=== PATIENT | female | born 1990 | race Caucasian/White ===

== ENCOUNTER → 2023-04-08 | Outpatient (CLI) | payer MEDICAID ==
[2023-04-08 13:05] LABS: BASOPHILS % (AUTO) 0 % (0-10); EOSINOPHILS # (AUTO) 0.1 10^3/uL (0.0-0.3); EOSINOPHILS % (AUTO) 1 % (0-10); HEMATOCRIT 41 % (35-52); HEMOGLOBIN 13.8 g/dL (11.5-16.0); LYMPHOCYTES # (AUTO) 3.7 10^3/uL (1.0-4.0); LYMPHOCYTES % (AUTO) 35 % (12-44); MEAN CORPUSCULAR HEMOGLOBIN 29 pg (25-34); MEAN CORPUSCULAR HGB CONC 33 g/dL (32-36); MEAN CORPUSCULAR VOLUME 88 fL (80-99); MEAN PLATELET VOLUME 11.4 fL (9.0-12.2); MONOCYTES % (AUTO) 9 % (0-12); NEUTROPHILS # (AUTO) 5.6 10^3/uL (1.8-7.8); NEUTROPHILS % (AUTO) 54 % (42-75); PLATELET COUNT 272 10^3/uL (130-400); WHITE BLOOD COUNT 10.5 10^3/uL (4.3-11.0)
[2023-04-08 13:11] LABS: ALBUMIN 4.1 GM/DL (3.2-4.5)
[2023-04-08 13:12] LABS: POTASSIUM 4.3 MMOL/L (3.6-5.0)
[2023-04-08 13:13] LABS: CALCIUM 9.4 MG/DL (8.5-10.1)
[2023-04-08 13:14] LABS: TOTAL PROTEIN 7.3 GM/DL (6.4-8.2)
[2023-04-08 13:16] LABS: BILIRUBIN,TOTAL 0.4 MG/DL (0.1-1.0)
[2023-04-08 13:17] LABS: CREATININE SERUM 0.81 MG/DL (0.60-1.30)
== END ==
LOC: LAB 12:44
PROVIDERS: ATTEND Nurse Practitioner Family
DX: R60.0 Localized edema (principal)
CPT/HCPCS: 36415; 80053; 83880; 85025

== ENCOUNTER 2023-06-21 19:46 | Emergency (ER) | payer MEDICAID ==
[~2023-06-21] VITALS: Ht 170.2 cm; Wt 147.0 kg
[2023-06-21] MEDS ORDERED: NS IV 1000 ML 1,000 ML IV STA (19:56)
[2023-06-21] MEDS ORDERED: ONDANSETRON 4 MG/2 ML (SDV) Z0FRAN IVP ONE (20:00)
--- NOTE | 2023-06-21 20:00 | ED General ---
General Stated Complaint: HEADACHE/NAUSEA Source of Information: Patient Exam Limitations: No Limitations History of Present Illness Date Seen by Provider: Jun 21, 2023 Time Seen by Provider: 19:58 Initial Comments Patient is a 32-year-old female who presents ED for heat exhaustion. Patient works in a [employer]. She states she was working in side today. Started feeling overheated flush. This started around 11 AM. She ended up sitting down and tried to cool off. Started having abdominal cramping, right flank cramping, upper and lower extremity cramping. Patient attempted to drink water and Theo rade but this has not helped. She reports generalized head pain with nausea. Denies vomiting or diarrhea. Subjective fever. No evidence of confusion, seizures. Not concern for . She urinated 4 times today and states that her urine appears dark. Denies chest pain, cough, shortness of breath, visual changes Allergies and Home Medications Allergies Coded Allergies: doxycycline (Verified Allergy, Unknown, 06/21/23) Patient Home Medication List Home Medication List Reviewed: Yes Review of Systems Review of Systems Constitutional: No diaphoresis; dizziness; No fever; malaise, weakness EENTM: No hearing loss, No ear pain, No blurred vision Respiratory: No cough Cardiovascular: No chest pain Gastrointestinal: No abdominal pain, No diarrhea; nausea; No vomiting Genitourinary: decreased output; No discharge Musculoskeletal: No back pain, No joint pain Skin: No change in color, No change in hair/nails All Other Systems Reviewed Negative Unless Noted: Yes Physical Exam Vital Signs Vital Signs - First Documented 06/21/23 19:52 Temp 37.8 Pulse 108 Resp 20 B/P (MAP) 144/93 (110) Pulse Ox 99 O2 Delivery Room Air Capillary Refill : Height, Weight, BMI Height: '" Weight: lbs. oz. kg; BMI Method: General Appearance: No Apparent Distress, WD/WN Eyes: Bilateral Eye Normal Inspection, Bilateral Eye PERRL, Bilateral Eye EOMI HEENT: PERRL/EOMI, TMs Normal, Normal ENT Inspection, Pharynx Normal Neck: Full Range of Motion, Normal Inspection, Non Tender, Supple Respiratory: Chest Non Tender, Lungs Clear, Normal Breath Sounds, No Accessory Muscle Use, No Respiratory Distress Cardiovascular: Regular Rate, Rhythm, No Edema, No Gallop, No JVD Gastrointestinal: Normal Bowel Sounds, No Organomegaly, No Pulsatile Mass, Non Tender Extremity: Normal Capillary Refill, Normal Inspection, Normal Range of Motion, Non Tender Neurologic/Psychiatric: Alert, Oriented x3, No Motor/Sensory Deficits, Normal 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, 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 Norm as Tested Skin: Normal Color, Warm/Dry Progress/Results/Core Measures Suspected Sepsis SIRS Temperature: Pulse: Respiratory Rate: Laboratory Tests 06/21/23 20:03: White Blood Count 8.1 Blood Pressure / Mean: Laboratory Tests 06/21/23 20:03: Creatinine 0.85, Platelet Count 246, Total Bilirubin 0.6 Results/Orders Lab Results Laboratory Tests Test 06/21/23 20:03 06/21/23 20:05 Range/Units White Blood Count 8.1 4.3-11.0 10^3/uL Red Blood Count 4.54 3.80-5.11 10^6/uL Hemoglobin 13.2 11.5-16.0 g/dL Hematocrit 39 35-52 % Mean Corpuscular Volume 87 80-99 fL Mean Corpuscular Hemoglobin 29 25-34 pg Mean Corpuscular Hemoglobin Concent 34 32-36 g/dL Red Cell Distribution Width 12.5 10.0-14.5 % Platelet Count 246 130-400 10^3/uL Mean Platelet Volume 10.9 9.0-12.2 fL Immature Granulocyte % (Auto) 0 % Neutrophils (%) (Auto) 60 42-75 % Lymphocytes (%) (Auto) 23 12-44 % Monocytes (%) (Auto) 13 H 0-12 % Eosinophils (%) (Auto) 4 0-10 % Basophils (%) (Auto) 0 0-10 % Neutrophils # (Auto) 4.8 1.8-7.8 10^3/uL Lymphocytes # (Auto) 1.8 1.0-4.0 10^3/uL Monocytes # (Auto) 1.0 0.0-1.0 10^3/uL Eosinophils # (Auto) 0.3 0.0-0.3 10^3/uL Basophils # (Auto) 0.0 0.0-0.1 10^3/uL Immature Granulocyte # (Auto) 0.0 0.0-0.1 10^3/uL Sodium Level 139 135-145 MMOL/L Potassium Level 3.7 3.6-5.0 MMOL/L Chloride Level 105 98-107 MMOL/L Carbon Dioxide Level 22 21-32 MMOL/L Anion Gap 12 5-14 MMOL/L Blood Urea Nitrogen 9 7-18 MG/DL Creatinine 0.85 0.60-1.30 MG/DL Estimat Glomerular Filtration Rate 94 BUN/Creatinine Ratio 11 Glucose Level 86 70-105 MG/DL Calcium Level 9.1 8.5-10.1 MG/DL Corrected Calcium 9.0 8.5-10.1 MG/DL Total Bilirubin 0.6 0.1-1.0 MG/DL Aspartate Amino Transf (AST/SGOT) 33 5-34 U/L Alanine Aminotransferase (ALT/SGPT) 79 H 0-55 U/L Alkaline Phosphatase 53 40-136 U/L Total Creatine Kinase 127 29-168 U/L Total Protein 7.6 6.4-8.2 GM/DL Albumin 4.1 3.2-4.5 GM/DL Lipase 15 8-78 U/L Urine Color YELLOW Urine Clarity CLEAR Urine pH 6.0 5-9 Urine Specific [place] >=1.030 1.016-1.022 Urine Protein TRACE H NEGATIVE Urine Glucose (UA) NEGATIVE NEGATIVE Urine Ketones TRACE H NEGATIVE Urine Nitrite NEGATIVE NEGATIVE Urine Bilirubin NEGATIVE NEGATIVE Urine Urobilinogen 0.2 < = 1.0 MG/DL Urine Leukocyte Esterase NEGATIVE NEGATIVE Urine RBC (Auto) NEGATIVE NEGATIVE Urine RBC NONE /HPF Urine WBC 0-2 /HPF Urine Squamous Epithelial Cells 25-50 H /HPF Urine Crystals PRESENT H /LPF Urine Amorphous Sediment LARGE JAZMIN URATES H /LPF Urine Bacteria FEW H /HPF Urine Casts NONE /LPF Urine Mucus LARGE H /LPF Urine Culture Indicated NO Urine Test NEGATIVE NEGATIVE My Orders Orders - DWAINE ANTHONY Cbc With Automated Diff (06/21/23 19:56) Comprehensive Metabolic Panel (06/21/23 19:56) Creatine Kinase (06/21/23 19:56) Ns Iv 1000 Ml (Sodium Chloride 0.9%) (06/21/23 19:56) Ua Culture If Indicated (06/21/23 19:56) Hcg,Qualitative Urine (06/21/23 19:56) Ondansetron Injection (Zofran Injectio (06/21/23 20:00) Lipase (06/21/23 19:57) Medications Given in ED Current Medications Medications Dose Ordered Sig/Rogers Route Start Time Stop Time Status Last Admin Dose Admin Ondansetron HCl 4 mg ONCE ONCE IVP 06/21/23 20:00 06/21/23 20:01 DC 06/21/23 20:08 4 MG Vital Signs/I&O 06/21/23 06/21/23 19:52 21:25 Temp 37.8 36.9 Pulse 108 96 Resp 20 20 B/P (MAP) 144/93 (110) 131/89 Pulse Ox 99 97 O2 Delivery Room Air Room Air Capillary Refill : Departure Communication (PCP) Differential diagnosis, heat exhaustion, YUMIKO, rhabdo. Patient is a 32-year-old female who presents ED for heat exhaustion. Patient works in [employer] in [place]. Started to feel overheated while working inside. Abdominal cramping generalized upper and lower extremity cramping. She felt feverish with a headache. Nausea without vomiting or diarrhea. Decreased urine output. urinated 4 times today. Attempted to drink fluids at home. Due to current complaint CBC, CMP, lipase, CPK, urinalysis was ordered. CBC, CMP grossly unremarkable. Normal kidney function and CPK. She had a low-grade temp 100.0. Started on liter fluid and given Zofran. After liter fluid patient was able to urinate without evidence of infection. Negative for . Moist mucous membranes. Discussed with patient likely more heat exhaustion. Patient does not appear confused or altered. She does not appear toxic. Recommend rest for the next few days. Suggest staying hydrated with oral fluids, Pedialyte, water. Tylenol or ibuprofen for head pain. If any worsening symptoms such as severe cramping, confusion or severe pain to return back to ED. Patient agrees with plan of action. No evidence surgical abdomen. Vital signs stable. Impression Primary Impression: Heat exhaustion Disposition: HOME, SELF-CARE Condition: Stable Departure-Patient Inst. Decision time for Depature: 20:36 Referrals: [facility] [facility],LOCAL PHYSICIAN (PCP) Primary Care Physician Patient Instructions: Heat Illness ED Add. Discharge Instructions: Recommend staying hydrated. Drink plenty fluids for the next 24 to 48 hours. Tylenol ibuprofen for head pain Work/School Note: Work Release Form Date Seen in the Emergency Department: Jun 21, 2023 Return to Work: Jun 24, 2023 DWAINE ANTHONY Jun 21, 2023 20:00
[2023-06-21 20:12] LABS: BASOPHILS % (AUTO) 0 % (0-10); EOSINOPHILS # (AUTO) 0.3 10^3/uL (0.0-0.3); EOSINOPHILS % (AUTO) 4 % (0-10); HEMATOCRIT 39 % (35-52); HEMOGLOBIN 13.2 g/dL (11.5-16.0); LYMPHOCYTES # (AUTO) 1.8 10^3/uL (1.0-4.0); LYMPHOCYTES % (AUTO) 23 % (12-44); MEAN CORPUSCULAR HEMOGLOBIN 29 pg (25-34); MEAN CORPUSCULAR HGB CONC 34 g/dL (32-36); MEAN CORPUSCULAR VOLUME 87 fL (80-99); MEAN PLATELET VOLUME 10.9 fL (9.0-12.2); MONOCYTES % (AUTO) 13 % (0-12); NEUTROPHILS # (AUTO) 4.8 10^3/uL (1.8-7.8); NEUTROPHILS % (AUTO) 60 % (42-75); PLATELET COUNT 246 10^3/uL (130-400); WHITE BLOOD COUNT 8.1 10^3/uL (4.3-11.0)
[2023-06-21 20:14] LABS: BILIRUBIN,URINE NEGATIVE (NEGATIVE); CLARITY,URINE CLEAR; COLOR,URINE YELLOW; GLUCOSE, URINE (UA) NEGATIVE (NEGATIVE); KETONES,URINE TRACE (NEGATIVE); LEUKOCYTE ESTERASE ,URINE NEGATIVE (NEGATIVE); NITRITE,URINE NEGATIVE (NEGATIVE); PROTEIN,URINE TRACE (NEGATIVE)
[2023-06-21 20:29] LABS: ALBUMIN 4.1 GM/DL (3.2-4.5); BILIRUBIN,TOTAL 0.6 MG/DL (0.1-1.0); CALCIUM 9.1 MG/DL (8.5-10.1); CREATININE SERUM 0.85 MG/DL (0.60-1.30); POTASSIUM 3.7 MMOL/L (3.6-5.0); TOTAL PROTEIN 7.6 GM/DL (6.4-8.2)
[2023-06-21 20:30] LABS: WBC,URINE 0-2 /HPF
[2023-06-21 20:31] LABS: SQUAMOUS EPITHELIAL CELL,UR 25-50 /HPF
[2023-06-21 20:32] LABS: AMORPHOUS SEDIMENT,UR LARGE AMOR URATES /LPF; BACTERIA,URINE FEW /HPF
[2023-06-21 21:25] VITALS: BP 131/89
== END 2023-06-21 21:25 | disposition home or self-care (01) ==
LOC: EDUNIT# 19:46 → ER 19:49
DX: T67.5XXA Heat exhaustion, unspecified, initial encounter (principal); R11.0 Nausea; X30.XXXA Exposure to excessive natural heat, initial encounter; Y92.63 Factory as the place of occurrence of the external cause; Y99.0 Civilian activity done for income or pay
CPT/HCPCS: 36415; 80053; 81000; 82550; 83690; 84703; 85025; 96361; 96374

== ENCOUNTER 2023-08-29 11:11 | Emergency (ER) | payer OTHER, MEDICAID ==
[~2023-08-29] VITALS: Ht 170 cm; Wt 148.0 kg
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
--- NOTE | 2023-08-29 12:32 | Diagnostic Imaging Report ---
EXAMINATION: Right forearm radiographs, 2 views. COMPARISON: None. HISTORY: 33-year-old female, right forearm pain. FINDINGS: There is no identified acute fracture. There is no radiopaque foreign body. Bone mineralization and alignment is unremarkable. IMPRESSION: 1. Unremarkable radiographs of the right forearm. Dictated by: Dictated on workstation # [id number]
[2023-08-29 12:46] VITALS: BP 135/96
== END 2023-08-29 12:46 | disposition home or self-care (01) ==
LOC: EDUNIT# 11:11 → ER 11:15
DX: S50.11XA Contusion of right forearm, initial encounter (principal); V40.5XXA Car driver injured in collision with pedestrian or animal in traffic accident, initial encounter; Y92.410 Unspecified street and highway as the place of occurrence of the external cause
CPT/HCPCS: 73090